=== PATIENT | male | born 1960 ===

== ENCOUNTER 2025-01-09 09:37 | Day surgery (SDC) | payer OTHER ==
[2025-01-09] VITALS (21 sets, daily range): BP systolic 105–139; BP diastolic 65–88
[~2025-01-09] VITALS: Ht 188 cm; Wt 106.9 kg
[~2025-01-09 09:37] MED LIST: ARTHRITIS PAIN150 GM TOP; Acetaminophen 500 MG Tab PO SCH; BUPR150ER PO; CeFAZolin Sodium 2,000 MG in NS 100 ML IV SCH; Chlorhexidine Mouth Care 15 ML UDC MT SCH; Crestor40 MG PO; DIAZ10 PO; DULO30 PO; HYDMOR8 PO; LOSA25 PO; Lactated Ringer's 1,000 ML IV SCH; METF500 PO; NAPR500 PO; OMEP20ER PO; OxyCODONE HCL 10 MG TABCR PO SCH; Ropivacaine 0.5% HCl/Pf 123.125 MG,EPINEPHrine HCL 0.25 MG,Ketorolac Tromethamine 15 MG... INFIL SCH; Tranexamic Acid 100 ML IV SCH
[2025-01-09] MEDS ORDERED: Crestor40 MG PO (09:49)
--- NOTE | 2025-01-09 10:43 | NUR ---
PRE-OP NOTE PT A&OX4, CALM, NO COMPLAINTS. Ambulatory in Day Surgery Patient confirms NPO status and agrees with scheduled surgery. Pre-Op teaching done. Pt verbalizes understanding. AT BEDSDIDE.
[2025-01-09] MEDS ORDERED: FentaNYL Citrate 50 MCG/ML 2 ML Injection IV PRN ×2 (14:00)
[2025-01-09] MEDS ORDERED: HYDROmorphone HCl/Pf 1MG SYR IV PRN ×3 (14:00→16:20)
[2025-01-09] MEDS ORDERED: Prochlorperazine Edisylate 10 mg Vial IV PRN (14:05)
[2025-01-09] MEDS ORDERED: Ondansetron HCl 2 MG / ML 2ML Vial IV PRN ×2 (14:05→16:25)
[2025-01-09] MEDS ORDERED: DiphenhydrAMINE HCL 25 MG Cap PO PRN (16:20)
[2025-01-09] MEDS ORDERED: Magnesium Hydroxide Conc 10 ML UDC PO PRN (16:20)
[2025-01-09] MEDS ORDERED: Metoclopramide HCl 5MG / ML 2ML Vial IV PRN (16:20)
[2025-01-09] MEDS ORDERED: Promethazine HCl 25 MG Tab PO PRN (16:25)
[2025-01-09] MEDS ORDERED: OxyCODONE HCL 5 MG TAB PO PRN ×2 (16:25)
[2025-01-09] MEDS ORDERED: Insulin Regular 100 UNIT/ML 10ML Vial SC SCH (16:30)
[2025-01-09] MEDS ORDERED: Bisacodyl 10 MG Supp PR PRN (16:30)
[2025-01-09] MEDS ORDERED: Lactated Ringer's 1,000 ML IV SCH (17:10)
--- NOTE | 2025-01-09 17:35 | NUR ---
PT ARRIVED TO RM 216 FROM PACU AT APPROXIMATELY 1630. PT DENIES PAIN BUT IS STILL HAS DECREASED SENSATION TO BLE. PT ALERT/ORIENTED X4. VSS. FAMILY AT BEDSIDE.
--- NOTE | 2025-01-09 17:37 | NUR ---
PT VERBALIZED THAT HE HAS NOT OBTAINED HIS PRESCRIPTION FOR PAIN MEDICATION. PT'S ATTEMPTED TO FIND OUT IF PRESCRIPTION WAS READY BUT WAS UNABLE TO OBTAIN THE INFORMATION. DR. JOHNSON' OFFICE WAS CONTACTED, STAFF CONFIRMED THAT PRESCRIPTION HAD BEEN SENT TO [facility]. [facility] CONTACTED AND CONFIRMED THER PRESCRIPTION WAS READY BUT PT'S INSURANCE WOULD ONLY COVER 7 DAYS INSTEAD OF 8 DAYS AND STATED THEY NEEDED PT CONFIRMATION TO FILL THIS PRESCRIPTION. PT PROVIDED CONFIRMATION TO FILL THE PRESCRIPTION, PT ADVISED TO REACH OUT TO DR. JOHNSON' OFFICE TOMORROW IF HE IS CONCERNED ABOUT NEEDING AN ADDITIONAL DAY OF PAIN MEDICATION. PT AND HIS SPOUSE VERBALIZED UNDERSTANDING.
[2025-01-09] MEDS ORDERED: Ketorolac Tromethamine 15mg Vial IV SCH (18:00)
--- NOTE | 2025-01-09 19:34 | NUR ---
SHIFT SUMMARY PT IS POD0 FROM L TKA. PT WILL REMAIN OVERNIGHT. PT IS STILL REPORTING SOME ALTERED SENSATION TO BLE, SENSATION IS IMPROVING. HE ALSO DOES NOT HAVE A WALKER AT HOME, PT STATES THERE WAS A MISCOMMUNICATION WITH THE DOCTOR'S OFFICE, PT'S WILL OBTAIN WALKER TOMORROW. VSS. PT TOLERATING PO. PAIN MANAGED. BEDSIDE REPORT GIVEN TO BRITTNEY VALDIVIA.
[2025-01-09] MEDS ORDERED: Docusate Sodium 100 MG Cap PO SCH (21:00)
[2025-01-09] MEDS ORDERED: CeFAZolin Sodium 2,000 MG in NS 100 ML IV SCH (21:30)
[2025-01-10] MEDS ORDERED: Acetaminophen 500 MG Tab PO SCH
--- NOTE | 2025-01-10 02:13 | NUR ---
RN TO ROOM TO ROUND AND ASK IF PT NEEDS PAIN MEDICATION; PT SLEEPING WITH EQUAL AND UNLABORED BREATHING. CALL LIGHT WITHIN REACH.
--- NOTE | 2025-01-10 03:32 | NUR ---
RN TO ROOM TO ROUND; PT SLEEPING ON LEFT SIDE; EQUAL AND UNLABORED BREATHS. CALL LIGHT WITHIN REACH.
[2025-01-10 03:58] VITALS: BP 111/73
--- NOTE | 2025-01-10 04:37 | NUR ---
SHIFT SUMMARY PT WITH NO ACUTE EVENTS OVERNIGHT. PT ABLE TO AMBULATE WITH FWW AND GAIT BELT. POLAR PACK HAS BEEN IN PLACE DURING SHIFT. PT MEDICATED PER EMAR FOR PAIN. PT UPDATED ON PLAN FOR DC.
[2025-01-10] MEDS ORDERED: Omeprazole 20 MG CapCR PO SCH (06:00)
[2025-01-10 06:13] LABS: BASOPHILS ABSOLUTE AUTO 0.02 K/mm3 (0.00-0.23); BASOPHILS PERCENT AUTO 0 % (0-2); EOSINOPHILS ABSOLUTE AUTO 0.01 K/mm3 (0.00-0.68); EOSINOPHILS PERCENT AUTO 0 % (0-6); Hematocrit 40.6 % (37.0-53.0); IMMATURE GRAN ABSOLUTE AUTO 0.06 K/mm3 (0.00-0.10); IMMATURE GRAN PERCENT AUTO 1 % (0-1); LYMPHOCYTES ABSOLUTE AUTO 1.15 K/mm3 (0.84-5.20); LYMPHOCYTES PERCENT AUTO 9 % (21-46); MONOCYTES ABSOLUTE AUTO 0.98 K/mm3 (0.16-1.47); MONOCYTES PERCENT AUTO 8 % (4-13); Mean Corpuscular HGB 31.1 pg (26.0-34.0); Mean Corpuscular HGB Conc 34.5 g/dL (31.5-36.5); Mean Corpuscular Volume 90 fL (80-100); NEUTROPHILS ABSOLUTE AUTO 9.99 K/mm3 (1.96-9.15); NEUTROPHILS PERCENT AUTO 82 % (41-73); Platelet Count 190 K/mm3 (150-400); RDW Coefficient Variation 12.7 % (11.7-14.2); White Blood Cell Count 12.21 K/mm3 (4.00-11.30)
[2025-01-10 06:37] LABS: Bun/Creatinine Ratio 16.4 (12.0-20.0); Calcium, Blood 8.3 mg/dL (8.5-10.1); Creatinine, Blood 0.67 mg/dL (0.60-1.20); Magnesium, Blood 1.6 mg/dL (1.6-2.4); Potassium, Blood 3.4 mmol/L (3.5-5.5)
[2025-01-10 07:13] VITALS: BP 134/80
[2025-01-10] MEDS ORDERED: ACET500 PO (08:09)
[2025-01-10] MEDS ORDERED: ASPI81CH PO (08:09)
[2025-01-10] MEDS ORDERED: OXYC5 PO (08:10)
[2025-01-10] MEDS ORDERED: DULoxetine HCL 30 MG Cap DR PO SCH (09:00)
[2025-01-10] MEDS ORDERED: Losartan Potassium 25 MG Tab PO SCH (09:00)
[2025-01-10] MEDS ORDERED: Aspirin 81 MG Chew PO SCH (09:00)
[2025-01-10] MEDS ORDERED: MetFORMIN HCl 500 mg PO SCH (09:00)
[2025-01-10 09:35] VITALS: BP 134/90
--- NOTE | 2025-01-10 09:51 | NUR ---
DC ASSUMED CARE @0700. PT AXO4. VSS. AQUACEL PATENT TO L KNEE. CRYOPACK TO KNEE. 0952 DC INSTRUCTIONS EDUCATED TO PATIENT. PT OK'D DC. PT'S SPOUSE HERE TO PICK PT UP. OUT OF ROOM @0953 VIA WHEELCHAIR.
== END 2025-01-10 10:15 | disposition home or self-care (01) ==
LOC: ORSCMMR 09:37 → ORD 09:37 → ORSCMMR 10:07 → ORD 10:30 → SURS 16:56 → ORSCMMR 16:56 → ORD 01-10 10:15 → ORSCMMR 01-10 10:15 → SURS 01-10 10:15
PROVIDERS: Orthopaedic Surgery
PROC: 0SRD0JA Replacement of Left Knee Joint with Synthetic Substitute, Uncemented, Open Approach (ICD-10-PCS; principal; 2025-01-09 12:30)
DX: M17.12 Unilateral primary osteoarthritis, left knee (principal); I10 Essential (primary) hypertension; E78.5 Hyperlipidemia, unspecified; E11.9 Type 2 diabetes mellitus without complications; F41.9 Anxiety disorder, unspecified; F32.A Depression, unspecified; Z87.891 Personal history of nicotine dependence; Z79.84 Long term (current) use of oral hypoglycemic drugs; Z79.899 Other long term (current) drug therapy
CPT/HCPCS: 27447; 0055T; 36415; 73560-LT; 80048; 82947; 83735; 85025; 97110; 97116; 97162; A9270; C1713; C1776; J0171; J0690; J0735; J1815; J1885; J2795